=== PATIENT | female | born 1990 | race Two or more races ===

== ENCOUNTER 2019-04-28 01:30 | Emergency (ER) | payer MEDICAID ==
[~2019-04-28] VITALS: Ht 154.9 cm; Wt 59.0 kg
[2019-04-28 02:46] VITALS: BP 119/84
[2019-04-28] MEDS ORDERED: ACETAMINOPHEN/CODEINE#3 (300/30mg) TAB PO ONE (03:00)
[2019-04-28] MEDS ORDERED: predniSONE 20 MG TAB PO ONE (03:00)
== END 2019-04-28 03:27 | disposition home or self-care (01) ==
LOC: ER 01:38
DX: J06.9 Acute upper respiratory infection, unspecified (principal)
CPT/HCPCS: 99283; J7512

== ENCOUNTER 2019-09-05 10:11 | Emergency (ER) | payer MEDICAID ==
[~2019-09-05] VITALS: Ht 157.5 cm; Wt 59.0 kg
[2019-09-05 10:45] VITALS: BP 119/71
[2019-09-05] MEDS ORDERED: SODIUM CHLORIDE 0.9% 1,000 ML IV ONE (10:45)
[2019-09-05 10:50] LABS: Urine Bacteria FEW /hpf (None Seen); Urine Blood 1+ /uL (Negative); Urine Mucus FEW (None Seen); Urine Specific Gravity 1.028 (1.001-1.035); Urine WBC 11 /hpf (0 - 5)
[2019-09-05 10:52] LABS: Basophils # (auto) 0.1 10 ^3/uL (0-0.2); Basophils % (auto) 0.9 % (0.0-2.0); Eosinophils # (auto) 0.4 10 ^3/uL (0-0.8); Eosinophils % (auto) 7.8 % (0.0-7.0); Hematocrit 44.6 % (36.0-46.0); Hemoglobin 15.4 g/dL (12.2-16.2); Lymphocytes # (auto) 2.4 10 ^3/uL (0.4-5.4); Mean Corpuscular Hemoglobin 31.1 pg (28.0-32.0); Mean Corpuscular Hgb Conc. 34.6 g/dL (32.0-36.0); Mean Corpuscular Volume 90.1 fL (80.0-100.0); Monocytes # (auto) 0.4 10 ^3/uL (0-1.3); Neutrophils # (auto) 2.3 10 ^3/uL (1.6-8.6); Neutrophils % (auto) 41.3 % (37.0-80.0); Nucleated Red Blood Cells % 0.1 %; Platelet Count (auto) 272 10^3/uL (140-450); Red Blood Cells 4.94 10^6/uL (4.0-5.20); Red Cell Distribution Width 13.3 % (11.8-14.3); White Blood Cell 5.6 10^3/uL (4.4-10.8)
[2019-09-05 11:05] LABS: Albumin 4.1 g/dL (3.4-5.0); Calcium 8.7 mg/dL (8.5-10.1); Potassium 3.8 mmol/L (3.5-5.1)
[2019-09-05 11:09] LABS: BUN/Creatinine Ratio 11.7; Bilirubin, Total 0.8 mg/dL (0.2-1.0); Total Protein 8.2 g/dL (6.4-8.2)
== END 2019-09-05 11:36 | disposition home or self-care (01) ==
LOC: ER 10:11
DX: N39.0 Urinary tract infection, site not specified (principal); R53.1 Weakness; F17.210 Nicotine dependence, cigarettes, uncomplicated
CPT/HCPCS: 36415; 80053; 81001; 85025

== ENCOUNTER 2020-09-16 04:16 | Emergency (ER) | payer MEDICAID ==
[~2020-09-16] VITALS: Ht 157.5 cm; Wt 68.0 kg
[2020-09-16 04:17] VITALS: BP 112/85
[2020-09-16] MEDS ORDERED: LIDOCAINE 1% HCL (LOCAL ANESTH.) INJ 20ML MDV IJ ONE (07:15)
== END 2020-09-16 08:00 | disposition home or self-care (01) ==
LOC: ER 04:16
DX: S61.411A Laceration without foreign body of right hand, initial encounter (principal); F17.210 Nicotine dependence, cigarettes, uncomplicated; F12.10 Cannabis abuse, uncomplicated; W22.8XXA Striking against or struck by other objects, initial encounter; Y93.89 Activity, other specified; Y92.89 Other specified places as the place of occurrence of the external cause; Y99.8 Other external cause status
CPT/HCPCS: 12001; 73130; 99283; J2001